=== PATIENT | male | born 1975 | race African-American/Black ===

== ENCOUNTER 2020-12-22 01:50 | Inpatient (IN) | payer BC ==
[2020-12-22 02:05] VITALS: TEMP 98.3; BMI 33.9
[2020-12-22] MEDS ORDERED: NITROGLYCERIN SUBLINGUAL 1/150 0.4 MG TAB SL ONE (02:23)
[2020-12-22] MEDS ORDERED: ASPIRIN 81 MG CHEWABLE TABLETS PO ONE (02:26)
[2020-12-22] MEDS ORDERED: ASPIRIN COATED 81 MG TABLET.EC ONE (02:27)
[2020-12-22 02:33] LABS: EOS % 4.2 % (0-4.5); HEMATOCRIT 36.8 % (35.4-49); HEMOGLOBIN 12.3 GM/dL (11.7-16.9); LYMPH % 28.3 % (8-40); MCH 32.9 pg (25.7-33.7); MCHC 33.5 g/dl (32.0-35.9); MEAN CELL VOLUME 98.2 fl (80-96); MEAN PLT VOLUME 8.4 fl (7.5-11.1); MONO % 12.2 % (3.8-10.2); NEUT % 54.3 % (42.8-82.8); PLATELET COUNT 178 K/MM3 (134-434); RBC 3.75 M/mm3 (4.00-5.60); RDW 13.7 % (11.9-15.9); WHITE BLOOD COUNT 8.6 K/mm3 (4.0-10.0)
[2020-12-22] MEDS ORDERED: NICARDIPINE 25 MG in DEXTROSE 5%-WATER - 240 ML IVPB SCH (02:45)
[2020-12-22 02:48] LABS: CHLORIDE 106 mmol/L (98-107); SODIUM 140 mmol/L (136-145)
[2020-12-22 02:49] LABS: CALCIUM 8.8 mg/dL (8.5-10.1)
[2020-12-22 02:50] LABS: ALBUMIN 3.6 g/dl (3.4-5.0); ANION GAP 7 MMOL/L (8-16); BLOOD UREA NITROGEN 10.9 mg/dL (7-18); CO2 27 mmol/L (21-32); GLUCOSE,RANDOM 102 mg/dL (74-106)
[2020-12-22 02:53] LABS: CREATININE 1.2 mg/dL (0.55-1.3); SGOT/AST 168 U/L (15-37); SGPT/ALT 40 U/L (13-61)
[2020-12-22 02:54] LABS: BILIRUBIN,TOTAL 0.5 mg/dL (0.2-1)
[2020-12-22 02:55] LABS: TOT PROT 7.2 g/dl (6.4-8.2)
[2020-12-22 02:56] LABS: ALK PHOS 70 U/L (45-117)
[2020-12-22 02:58] LABS: N-TERMINAL BNP 626.7 pg/ml (5-125)
[2020-12-22] MEDS ORDERED: HEPARIN NA (PORCINE) 5,000 UNITS/ML 1ML VIAL IVPUSH PRN ×2 (04:04)
[2020-12-22] MEDS ORDERED: HEPARIN INFUSION - 25,000 UNITS/500 ML INFUS.BAG IVPB ONE (04:05)
[2020-12-22] MEDS ORDERED: HEPARIN - 25,000 UNIT in SODIUM CHLORIDE 495 ML IV SCH (04:15)
[2020-12-22] MEDS ORDERED: MORPHINE SULFATE 2 MG/ML VIAL IVPUSH PRN ×2 (05:21→06:23)
[2020-12-22] MEDS ORDERED: ATORVASTATIN CA 40 MG TABLET (FP) ONE (05:27)
[2020-12-22] MEDS ORDERED: ATORVASTATIN CA 80 MG TABLET (FP) PO ONE (05:27)
[2020-12-22 06:00] LABS: EPI CELLS 10 /uL (0-25.1); HYALINE CASTS 1 /uL (0-3.1); PH,URINE 6.5 (5.0-8.0); URINE APPEARANCE CLEAR; URINE BACTERIA 15 /uL (0-1359); URINE BILIRUBIN NEGATIVE (NEGATIVE); URINE COLOR YELLOW; URINE GLUCOSE (UA) NEGATIVE (NEGATIVE); URINE KETONE NEGATIVE (NEGATIVE); URINE LEUK ESTERASE NEGATIVE (NEGATIVE); URINE NITRITE NEGATIVE (NEGATIVE); URINE PROTEIN 1+ (NEGATIVE); URINE RBC 8 /uL (0-23.9); URINE UROBILINOGEN 0.2 mg/dL (0.2-1.0); URINE WBC 3 /uL (0-25.8)
[2020-12-22] MEDS ORDERED: CLOPIDOGREL BISULFATE 300 MG TABLET PO ONE (06:35)
[2020-12-22] MEDS ORDERED: CLOPIDOGREL BISULFATE 300 MG TABLET ONE (06:38)
[2020-12-22 07:08] VITALS: BP 141/94; PULSE 74
[2020-12-22] MEDS ORDERED: ASPIRIN 81 MG CHEWABLE TABLETS PO SCH (10:00)
[2020-12-22] MEDS ORDERED: ASPIRIN COATED 81 MG TABLET.EC PO SCH (10:00)
[2020-12-22] MEDS ORDERED: ATORVASTATIN CA 40 MG TABLET (FP) PO SCH (22:00)
== END 2020-12-22 07:45 | disposition short-term general hospital (02) | DRG 281 ==
LOC: JER 01:50 → JERBED 05:32
PROVIDERS: ADMIT Internal Medicine; ATTEND Internal Medicine
DX: I21.4 Non-ST elevation (NSTEMI) myocardial infarction (principal); I16.1 Hypertensive emergency; Z91.14 Patient's other noncompliance with medication regimen
CPT/HCPCS: 36415; 71045-TC-FY; 80053; 81003; 82550; 82553; 83735; 83880; 84484; 85025; 85730; 93005; 93010; 99285-25; C9803; J1644; U0003; U0005